=== PATIENT | female | born 2000 | race African-American/Black ===

== ENCOUNTER 2022-01-26 15:10 | Emergency (ER) | payer MEDICARE, MEDICAID ==
[~2022-01-26] VITALS: Ht 170.2 cm; Wt 82.2 kg
[2022-01-26] MEDS ORDERED: DexAMETHasone SOD PHOS 10MG/1ML VIAL INJ IM ONE (17:30)
[2022-01-26] MEDS ORDERED: hydrOXYzine 25 MG TAB or CAP PO ONE (17:30)
[2022-01-26] MEDS ORDERED: HYDR-3682 PO (17:39)
[2022-01-26 18:24] VITALS: BP 118/84
== END 2022-01-26 18:18 | disposition home or self-care (01) ==
LOC: ER 15:10
DX: L25.9 Unspecified contact dermatitis, unspecified cause (principal); L50.0 Allergic urticaria
CPT/HCPCS: 96372; 99283; J1100